=== PATIENT | female | born 1955 | race Caucasian/White ===

== ENCOUNTER 2018-05-02 14:10 | Inpatient (IN) | payer OTHER ==
[~2018-05-02] VITALS: Ht 167.6 cm; Wt 108.4 kg
[2018-05-02] MEDS ORDERED: ONDANSETRON HCL/PF 4 MG/2 ML VIAL IVP PRN (18:00)
[2018-05-02] MEDS ORDERED: Z GUARD REMEDY 2 OZ OINT TP PRN (18:00)
[2018-05-02] MEDS ORDERED: ACETAMINOPHEN 325 MG TABLET PO PRN (18:00)
[2018-05-02] MEDS ORDERED: MAG HYDROX/AL HYDROX/SIMETH 30 ML UDC PO PRN (18:00)
[2018-05-02] MEDS ORDERED: MAGNESIUM HYDROXIDE 30 ML UDC PO PRN (18:00)
[2018-05-02 18:06] VITALS: BP 170/83
--- NOTE | 2018-05-02 18:41 | NUR ---
MS CAREER DEVELOPMENT MANAGER NOTES 62 YEARS OLD FEMALE, DIRECT ADMIT FROM [facility]. PATIENT IS A/O X4, COOPERATIVE. SKIN BODY ASSESSMENT DONE WITH LLOYD WILSON. RIGHT POSTERIOR FIRST TOE OPEN WOUND, DENIES PAIN. DRESSING CHANGED. PATIENT AMBULATES INDEPENDENTLY. HAD DINNER WITH GOOD APPETITE. MAINTAINED SAFETY, WILL ENDORSE TO ONCOMING RN, ADMISSION PROCESS TO COMPLETE.
[2018-05-02] MEDS ORDERED: FEE PK DOSING 1 MIN EA MC ONE (18:45)
[2018-05-02 19:00] VITALS: BP 170/83
[2018-05-02 19:17] VITALS: BP 142/82
[2018-05-02 19:18] VITALS: BP 142/82
--- NOTE | 2018-05-02 19:20 | NUR ---
MS/RN NOTES RECEIVED PT. LYING IN BED. PT. IS AWAKE, ALERT AND ORIENTED X4. BREATHING EVEN AND UNLABORED ON ROOM AIR. NO SOB, RESPIRATORY DISTRESS OR COMPLAINTS OF PAIN NOTED AT THIS TIME. PT. WITH RIGHT AC 20 GAUGE IV SALINE LOCK PRESENT, PATENT AND INTACT. PT. WITH RIGHT TOE OPEN WOUND DRESSING PRESENT, CLEAN, DRY AND INTACT. BED LOCKED AND IN LOWEST POSITION, SIDE RAILS UP X2, CALL LIGHT WITHIN REACH, WILL COMPLETE PT. MED RECON AND ADMISSION, WILL CONTINUE TO MONITOR.
[2018-05-02 20:00] VITALS: BP 139/70
[2018-05-02] MEDS ORDERED: MIRT7.5T10 PO (20:06)
[2018-05-02] MEDS ORDERED: AMLO10TA4 PO (20:06)
[2018-05-02] MEDS ORDERED: GLIP5TAB13 PO (20:06)
[2018-05-02] MEDS ORDERED: LOSA1TAB39 PO (20:06)
[2018-05-02] MEDS ORDERED: ACYC400T PO (20:06)
[2018-05-02] MEDS ORDERED: METO100T14 PO (20:06)
[2018-05-02] MEDS ORDERED: PRAV20TA4 PO (20:06)
[2018-05-02] MEDS ORDERED: BACL10TA PO (20:06)
[2018-05-02] MEDS ORDERED: METF-442 PO (20:06)
[2018-05-02] MEDS ORDERED: FLUO20CA36 PO (20:06)
[2018-05-02] MEDS ORDERED: TRAM50TA2 PO (20:33)
[2018-05-02] MEDS ORDERED: LEVO25TA7 PO (20:33)
[2018-05-02] MEDS ORDERED: INSU100I26 SQ (20:33)
[2018-05-02] MEDS ORDERED: CLONIDINE HCL 0.1 MG TABLET PO PRN (21:00)
[2018-05-02] MEDS ORDERED: TRAMADOL HCL 50 MG TABLET PO PRN (21:00)
--- NOTE | 2018-05-02 21:14 | NUR ---
MS/RN NOTES CALLED AND NOTIFIED EPIC PHYSICIAN LIAISON DR. SLATER PT. IS DIABETIC AND DOES NOT HAVE ANY ACCUCHECKS ORDERED. PER DR. SLATER NEW ORDERS: ACCUCHECKS ACHS WITH MILD SLIDING SCALE. WILL CARRY OUT ORDERS. WILL CONTINUE TO MONITOR.
[2018-05-02 21:24] LABS: BASOPHILS # (AUTO) 0.1 /CMM (0.0-0.2); BASOPHILS % (AUTO) 0.8 % (0.0-2.0); EOSINOPHILS % (AUTO) 0.7 % (0.0-6.0); HEMATOCRIT 39 % (33-45); HEMOGLOBIN 13.1 g/dL (11.5-14.8); LYMPHOCYTES # (AUTO) 1.9 /CMM (0.8-4.8); LYMPHOCYTES % (AUTO) 13.4 % (20.0-44.0); MEAN CORPUSCULAR HGB CONC 34 g/dl (31.0-36.0); MEAN CORPUSCULAR VOLUME 93 fL (82-100); MONOCYTES # (AUTO) 0.5 /CMM (0.1-1.30); MONOCYTES % (AUTO) 3.5 % (2.0-12.0); NEUTROPHILS # (AUTO) 11.8 /CMM (1.8-8.9); NEUTROPHILS % (AUTO) 81.6 % (43.0-81.0); PLATELET COUNT (AUTO) 261 /CMM (150-450); RED BLOOD CELL COUNT(AUTO) 4.22 MIL/uL (4.0-5.2); WHITE BLOOD COUNT (AUTO) 14.5 K/uL (4.3-11.0)
[2018-05-02] MEDS ORDERED: DEXTROSE 50%-WATER 50 ML DISP.SYRIN IV PRN (21:30)
[2018-05-02 21:36] LABS: CALCIUM, SERUM 9.1 mg/dL (8.5-10.1); POTASSIUM 4.3 mmol/L (3.5-5.1)
[2018-05-02] MEDS ORDERED: PRAVASTATIN SODIUM 20 MG TABLET PO SCH (22:00)
[2018-05-02] MEDS ORDERED: Medication Not On Formulary EA (Mirtazapine 7.5 MG) PO SCH (22:00)
[2018-05-02] MEDS: AMLODIPINE BESYLATE 10 MG TABLET PO SCH (22:21)
[2018-05-02] MEDS: MIRTAZAPINE 15 MG TABLET PO SCH (22:21)
[2018-05-02] MEDS: INSULIN REGULAR, HUMAN 100 UNIT/ML 3 ML VIAL SQ PRN (22:37)
[2018-05-02] MEDS: BLOOD SUGAR DIAGNOSTIC 1 EACH STRIP IN SCH (22:38)
[2018-05-03] MEDS: VANCOMYCIN 1 GM in IV D5W 250 ML IV SCH ×3 (01:04→23:19)
--- NOTE | 2018-05-03 06:28 | NUR ---
MS/RN NOTES PT. IS LYING IN BED RESTING. BREATHING EVEN AND UNLABORED ON ROOM AIR. NO SOB, RESPIRATORY DISTRESS OR COMPLAINTS OF PAIN NOTED AT THIS TIME. PT. WITH RIGHT AC 20 GAUGE IV SALINE LOCK PRESENT, PATENT AND INTACT. ALL PT. NEEDS MET. BED LOCKED AND IN LOWEST POSITION, SIDE RAILS UP X2, CALL LIGHT WITHIN REACH, WILL ENDORSE TO DAYSHIFT NURSE FOR CONTINUITY OF CARE.
[2018-05-03] MEDS: BLOOD SUGAR DIAGNOSTIC 1 EACH STRIP IN SCH ×4 (07:01→21:09)
[2018-05-03] MEDS: INSULIN REGULAR, HUMAN 100 UNIT/ML 3 ML VIAL SQ PRN ×4 (07:04→21:11)
[2018-05-03] MEDS: LEVOTHYROXINE SODIUM 100 MCG TABLET PO SCH (07:39)
[2018-05-03 07:43] LABS: BASOPHILS # (AUTO) 0.1 /CMM (0.0-0.2); BASOPHILS % (AUTO) 0.8 % (0.0-2.0); EOSINOPHILS % (AUTO) 1.4 % (0.0-6.0); HEMATOCRIT 38 % (33-45); HEMOGLOBIN 12.7 g/dL (11.5-14.8); LYMPHOCYTES # (AUTO) 1.8 /CMM (0.8-4.8); LYMPHOCYTES % (AUTO) 23.5 % (20.0-44.0); MEAN CORPUSCULAR HGB CONC 34 g/dl (31.0-36.0); MEAN CORPUSCULAR VOLUME 93 fL (82-100); MONOCYTES # (AUTO) 0.4 /CMM (0.1-1.30); MONOCYTES % (AUTO) 4.9 % (2.0-12.0); NEUTROPHILS # (AUTO) 5.4 /CMM (1.8-8.9); NEUTROPHILS % (AUTO) 69.4 % (43.0-81.0); PLATELET COUNT (AUTO) 239 /CMM (150-450); RED BLOOD CELL COUNT(AUTO) 4.06 MIL/uL (4.0-5.2); WHITE BLOOD COUNT (AUTO) 7.8 K/uL (4.3-11.0)
[2018-05-03 07:58] LABS: CALCIUM, SERUM 9.2 mg/dL (8.5-10.1); MAGNESIUM 1.8 mg/dL (1.8-2.4); PHOSPHORUS 3.9 mg/dL (2.5-4.9); POTASSIUM 4.2 mmol/L (3.5-5.1)
[2018-05-03 08:00] VITALS: BP 145/72
--- NOTE | 2018-05-03 08:17 | NUR ---
WOUND CARE CONSULT. SEEN PATIENT AT BEDSIDE,PATIENT ,HAS RT POSTERIOR FIRST TOE WOUND ,RECOMMENDED TO COVER WITH MEPILEX TILL SEE DPM Addendum: 05/03/18 at 0820 by DANNIELLE BEARD RN Amended: Links added.
[2018-05-03] MEDS: BACLOFEN (10 MG) 10 MG TABLET PO SCH ×2 (08:37→16:21)
[2018-05-03] MEDS: FLUOXETINE HCL 20 MG CAPSULE PO SCH (08:37)
[2018-05-03] MEDS: AMLODIPINE BESYLATE 10 MG TABLET PO SCH (08:37)
[2018-05-03] MEDS: METOPROLOL TARTRATE 50 MG TABLET PO SCH (08:38)
[2018-05-03] MEDS: ACYCLOVIR 200 MG CAPSULE PO SCH ×2 (08:38→16:21)
[2018-05-03] MEDS: LOSARTAN/HCTZ 50-12.5MG/ 1 EA TABLET PO SCH (08:39)
--- NOTE | 2018-05-03 08:40 | NUR ---
MS RN INITIAL NOTES Patient is awake, sitting up in bed, had breakfast with good appetite. Stable on RA. Right first toe dressing intact, denies pain, awaits wound consult. Patient voicing to go home today. Maintained safety, will cont to monitor.
[2018-05-03] MEDS: ENOXAPARIN SODIUM 40 MG/0.4 ML DISP.SYRIN SQ SCH (08:43)
[2018-05-03] MEDS ORDERED: Medication Not On Formulary EA (Losartan/Hydrochlorothiazide (Losartan-Hctz 100-25 Mg Ta PO SCH (09:00)
[2018-05-03 16:00] VITALS: BP 137/78
[2018-05-03] MEDS: HYDROCODONE/APAP 5/325MG 1 EACH TABLET PO PRN ×2 (16:27→21:17)
--- NOTE | 2018-05-03 18:06 | NUR ---
MS RN CLOSING NOTES Patient is awake, sitting up in bed,had dinner with good appetite. Stable on RA. S/P right foot debridement today by Dr. Wood, left foot dressing intact. Back pain managed by PRN alta. Continued on IV antibiotic as ordered. Accu check with insulin per parameters. Maintained safety, will endorse to oncoming RN.
--- NOTE | 2018-05-03 19:22 | NUR ---
MS RN OPENING NOTES: RECEIVED PT ON ROOM AIR AND IS TOLERATING WELL. NO SOB NOTED. NO S/S OF DISTRESS. PT IS A/OX4. PT WATCHING TELEVISION AT THIS TIME. PT HAS IV ON R AC #20G AND IS PATENT AND INTACT. CURRENTLY H/L. BED KEPT IN LOW, LOCKED POSITION, AND SIDE RAILS X 2UP. WILL CONTINUE TO MONITOR PT.
[2018-05-03 20:00] VITALS: BP 121/66
[2018-05-03] MEDS: ATORVASTATIN 10 MG TABLET PO SCH (21:09)
[2018-05-03] MEDS: MIRTAZAPINE 15 MG TABLET PO SCH (21:09)
--- NOTE | 2018-05-03 21:15 | NUR ---
MS RN NOTES: BLOOD SUGAR WAS 198. 3 UNITS OF INSULIN WAS ADMINISTERED. ORANGE SLICES AT BEDSIDE. WILL CONTINUE TO MONITOR PT.
--- NOTE | 2018-05-03 21:20 | NUR ---
MS RN NOTES: PT COMPLAINING OF 8/10 PAIN WITH R FOOT AND BACK PAIN. PT WAS ADMINISTERED NORCO 5 PO. WILL CONTINUE TO MONITOR PT.
--- NOTE | 2018-05-03 21:30 | NUR ---
MS RN NOTES: OFFERED TO CHANGE DRESSING ON RIGHT FOOT. PT SAID IT IS STILL CLEAN AND DRY AND MD TOLD HER TO WAIT 24 HOURS FROM WHEN IT WAS CHANGED 1000AM. WILL LET AM NURSE KNOW.
[2018-05-04] MEDS: BLOOD SUGAR DIAGNOSTIC 1 EACH STRIP IN SCH ×4 (06:10→21:49)
[2018-05-04] MEDS: HYDROCODONE/APAP 5/325MG 1 EACH TABLET PO PRN ×3 (06:21→20:20)
--- NOTE | 2018-05-04 06:21 | NUR ---
MS RN NOTES: PT COMPLAINING OF 8/10 BACK PAIN. PT WAS ADMINISTERED NORCO 5. WILL CONTINUE TO MONITOR.
[2018-05-04] MEDS: INSULIN REGULAR, HUMAN 100 UNIT/ML 3 ML VIAL SQ PRN ×4 (06:29→21:37)
--- NOTE | 2018-05-04 06:31 | NUR ---
MS RN NOTES: BLOOD SUGAR THIS AM WAS 167. 3 UNITS OF INSULIN WAS ADMINISTERED. ORANGE SLICES AT BEDSIDE. WILL ENDORSE TO AM NURSE.
--- NOTE | 2018-05-04 06:41 | NUR ---
MS RN CLOSING NOTES: ALL NEEDS WERE ATTENDED AND ANTICIPATED FOR. PT KEPT CLEAN, DRY, AND COMFORTABLE. PT RESTING IN BED COMFORTABLY. IV REMAINS INTACT. CURRENTLY H/L. PAIN MANAGED WITH NORCO 5. 3 UNITS OF INSULIN WAS ADMINISTERED FOR BLOOD SUGAR OF 167 THIS AM. BED KEPT IN LOW, LOCKED POSITION, AND SIDE RAILS X 2UP. WILL ENDORSE TO AM NURSE FOR VEENA.
[2018-05-04 06:55] LABS: CALCIUM, SERUM 9.2 mg/dL (8.5-10.1); CREATININE 1.2 mg/dL (0.6-1.3)
[2018-05-04 08:00] VITALS: BP 120/60
--- NOTE | 2018-05-04 08:00 | NUR ---
MS RN NOTES PATIENT IN BED RESTING ALERT, ORIENTED X3. BED IN LOW LOCKED POSITION. CALL LIGHT WITHIN REACH. PERIPHERAL IV INTACT PATENT. WILL CONTINUE TO MONITOR.
[2018-05-04] MEDS: ACYCLOVIR 200 MG CAPSULE PO SCH ×2 (09:02→16:35)
[2018-05-04] MEDS: METOPROLOL TARTRATE 50 MG TABLET PO SCH (09:02)
[2018-05-04] MEDS: AMLODIPINE BESYLATE 10 MG TABLET PO SCH (09:03)
[2018-05-04] MEDS: BACLOFEN (10 MG) 10 MG TABLET PO SCH ×2 (09:03→16:35)
[2018-05-04] MEDS: FLUOXETINE HCL 20 MG CAPSULE PO SCH (09:03)
[2018-05-04] MEDS: LOSARTAN/HCTZ 50-12.5MG/ 1 EA TABLET PO SCH (09:03)
[2018-05-04] MEDS: ENOXAPARIN SODIUM 40 MG/0.4 ML DISP.SYRIN SQ SCH (09:04)
[2018-05-04] MEDS: LEVOTHYROXINE SODIUM 100 MCG TABLET PO SCH (09:05)
[2018-05-04] MEDS: HYDROGEL DRESSING 90 GM TUBE TP SCH (09:09)
[2018-05-04] MEDS: VANCOMYCIN 1 GM in IV D5W 250 ML IV SCH ×2 (12:23→23:24)
[2018-05-04 16:00] VITALS: BP 121/67
--- NOTE | 2018-05-04 19:01 | NUR ---
MS RN NOTES PATIENT IN BED RESTING ALL DUE MEDICATIONS ADMINISTERED. ALL NEEDS MET WILL ENDORSE TO PM SHIFT VEENA. NO ACUTE CHANGES NOTED DURING SHIFT.
--- NOTE | 2018-05-04 19:15 | NUR ---
MS RN OPENING NOTES Received patient A/O X4, on semi-Fowlers position on bed. R hallux covered with clean dry and intact dressing. Patient denies any discomfort at this time. With peripheral Iv anatoliy RAC G20 SL. Call light bedside. Will continue to monitor accordingly.
[2018-05-04 20:00] VITALS: BP 114/64
--- NOTE | 2018-05-04 20:23 | NUR ---
MS RN NOTES Patient asked for pain meds for complaint of lower back pain 10/18. Patient preferred Clint. Administered Clint-5 as ordered. Encouraged patient to reposition on bed at frequently. Will continue to monitor.
[2018-05-04] MEDS: ATORVASTATIN 10 MG TABLET PO SCH (21:50)
[2018-05-04] MEDS: MIRTAZAPINE 15 MG TABLET PO SCH (21:52)
[2018-05-05 06:21] LABS: CALCIUM, SERUM 9.1 mg/dL (8.5-10.1); CREATININE 1.2 mg/dL (0.6-1.3); POTASSIUM 4.3 mmol/L (3.5-5.1)
[2018-05-05] MEDS: INSULIN REGULAR, HUMAN 100 UNIT/ML 3 ML VIAL SQ PRN ×2 (06:30→12:01)
[2018-05-05] MEDS: BLOOD SUGAR DIAGNOSTIC 1 EACH STRIP IN SCH ×2 (06:33→11:51)
--- NOTE | 2018-05-05 06:46 | NUR ---
MS RN CLOSING NOTES Patient asleep on Pineda's position. All needs attended. No complaints made within the shift. Due meds given as ordered. For possible D/C today. Endorsed to the next shift.
--- NOTE | 2018-05-05 07:52 | NUR ---
MS RN OPENING NOTE RECEIVED PATIENT IN BED. SLEEPING, EASILY AROUSED WITH VERBAL STIMULI. ORIENTED X4. ON ROOM AIR TOLERATING WELL. IN NO APPARENT DISTRESS OR DISCOMFORT AT THIS TIME. RESPIRATIONS EVEN AND UNLABORED DENIES PAIN AND SOB. PATIENT IS ABLE TO COMMUNICATE NEEDS. ABLE TO AMBULATE INDEPENDENTLY. RIGHT AC 20G IVC SL, PATENT AND INTACT. PATIENT WITH DRESSING ON RIGHT FOOT, CLEAN AND INTACT AT THIS TIME. ALL NEEDS ATTENDED, SAFETY MEASURES IN PLACE, BED IN LOW LOCKED POSITION, SIDE RIALS UP 2, CALL LIGHT WITHIN EASY REACH, WILL CONTINUE TO MONITOR.
[2018-05-05 08:00] VITALS: BP 136/69
[2018-05-05] MEDS: ENOXAPARIN SODIUM 40 MG/0.4 ML DISP.SYRIN SQ SCH (08:27)
[2018-05-05] MEDS: METOPROLOL TARTRATE 50 MG TABLET PO SCH (08:29)
[2018-05-05] MEDS: AMLODIPINE BESYLATE 10 MG TABLET PO SCH (08:29)
[2018-05-05] MEDS: BACLOFEN (10 MG) 10 MG TABLET PO SCH (08:29)
[2018-05-05] MEDS: LEVOTHYROXINE SODIUM 100 MCG TABLET PO SCH (08:29)
[2018-05-05] MEDS: FLUOXETINE HCL 20 MG CAPSULE PO SCH (08:29)
[2018-05-05 08:30] VITALS: BP 136/69
[2018-05-05] MEDS: LOSARTAN/HCTZ 50-12.5MG/ 1 EA TABLET PO SCH (08:30)
[2018-05-05] MEDS: ACYCLOVIR 200 MG CAPSULE PO SCH (08:32)
[2018-05-05] MEDS: HYDROGEL DRESSING 90 GM TUBE TP SCH (08:35)
[2018-05-05] MEDS: HYDROCODONE/APAP 5/325MG 1 EACH TABLET PO PRN (08:36)
[2018-05-05] MEDS: VANCOMYCIN 1 GM in IV D5W 250 ML IV SCH (11:49)
[2018-05-05] MEDS ORDERED: SULF1TAB48 PO (12:38)
--- NOTE | 2018-05-05 15:00 | NUR ---
MS STEEL DIE ENGRAVER NOTE RECEIVED ORDER FOR DISCHARGE FROM DR. ROBIN GARZON. PATIENT IS BEING DISCHARGE HOME UNDER SELF CARE. PATIENT IS STABLE, VITAL SIGNS STABLE. ALERT ORIENTED, NO ACUTE CHANGE PRIOR TO DISCHARGE. PATIENT IS IN NO DISTRESS, DENIES PAIN AND SOB. DISCHARGE PAPERWORK WAS PREPARED VIA [employer]. EDUCATION PROVIDED REGARDING NEW AND OLD MEDICATIONS, DISEASE PROCESS, MANAGEMENT, FOLLOW UP CARE. INSTRUCTED ON WOUND CARE AT HOME. PATIENT VERBALIZED UNDERSTANDING. SKIN ASSESSMENT COMPLETED, PHOTOS TAKEN PLACED IN CHART. WOUND CARE PERFORMED PRIOR TO DISCHARGE. VACCINATIONS REVIEWED , PATIENT IS UP TO DATE. VALUABLES CHECKED AND ACCOUNTED FOR. ALL FORMED ARE SIGNED WITH THE PATIENT, COPIES MADE, PLACED IN CHART. PERIPHERAL IV REMOVED, TIP INTACT. ID BAND REMOVED. PATIENT LEFT THE HOSPITAL ON A WHEELCHAIR, ACCOMPANIED BY HER AND LLOYD HO AT 1500.
== END 2018-05-05 15:00 | disposition home or self-care (01) | DRG 380 ==
LOC: MED 17:44
PROVIDERS: ADMIT Internal Medicine
PROC: 0JBQ0ZZ Excision of Right Foot Subcutaneous Tissue and Fascia, Open Approach (ICD-10-PCS; principal; 2018-05-02)
DX: E11.621 Type 2 diabetes mellitus with foot ulcer (principal); L97.519 Non-pressure chronic ulcer of other part of right foot with unspecified severity; E11.42 Type 2 diabetes mellitus with diabetic polyneuropathy; L03.115 Cellulitis of right lower limb; I10 Essential (primary) hypertension; E66.01 Morbid (severe) obesity due to excess calories; E78.5 Hyperlipidemia, unspecified; E03.9 Hypothyroidism, unspecified; Z79.4 Long term (current) use of insulin; Z79.84 Long term (current) use of oral hypoglycemic drugs; Z79.899 Other long term (current) drug therapy; Z68.38 Body mass index [BMI] 38.0-38.9, adult
CPT/HCPCS: 36415; 80048-TC; 80202-TC; 82962-TC; 83735-TC; 84100-TC; 85025-TC; 87081-TC; A4606; A6248; A6402; A6403; G0378; J1650; J1815; J3370; J7050; J7060; Z7610